=== PATIENT | male | born 1970 | race Hispanic/Latino ===

== ENCOUNTER → 2019-02-22 | Outpatient (CLI) | payer OTHER | END | disposition home or self-care (01) | LOC: OIH 08:10 | PROVIDERS: ATTEND Internal Medicine Cardiovascular Disease | DX: Z13.6 Encounter for screening for cardiovascular disorders (principal) | CPT/HCPCS: 75571 ==

== ENCOUNTER → 2019-03-14 | Outpatient (CLI) | payer OTHER ==
[2019-03-14] MEDS: REGADENOSON 0.4 MG/5 ML PF SYG IVP SCH (13:35)
== END | disposition home or self-care (01) ==
LOC: RAH 08:39
PROVIDERS: ATTEND Internal Medicine Cardiovascular Disease
DX: R07.89 Other chest pain (principal)
CPT/HCPCS: 78452; 93017; 96374; A9500 ×2; J2785

== ENCOUNTER → 2022-05-07 | Outpatient (CLI) | payer OTHER | END | disposition home or self-care (01) | LOC: RAH 08:30 | PROVIDERS: ATTEND Internal Medicine Cardiovascular Disease | DX: I51.7 Cardiomegaly (principal); I20.9 Angina pectoris, unspecified | CPT/HCPCS: 75574 ==